=== PATIENT | female | born 1965 | race Caucasian/White ===

== ENCOUNTER 2016-09-11 06:28 | Day surgery (SDC) | payer OTHER ==
--- NOTE | ~2016-09-11 | EGD ---
EGD REPORT [facility] [address] [address] NAME: YUMIKO GUERRIER : [birth year] STATUS : REG [facility]#: [id number] AGE: 51 ADM/REG DATE : 09/11/16 MR#: [id number] REPORT SERV DATE: 09/11/16 DICTATED BY: ALENA MIKE DATE: 09/11/16 REPORT STATUS : Draft TRANSCRIBED BY: [facility] DATE: 09/11/16 Endoscopy Center Patient Name: Yumiko Guerrier Date of : 1965 Attending MD: ALENA MIKE, Procedure Date No Time: 09/11/2016 Procedure: Upper EUS Indications: Gastric deformity on endoscopy/Subepithelial tumor versus extrinsic compression Referring MD: Dione Sears Medicines: Monitored Anesthesia Care Complications: No immediate complications. Estimated blood loss: None. Procedure: Pre-Anesthesia Assessment: - ASA Grade Assessment: II - A patient with mild systemic disease. After obtaining informed consent, the endoscope was passed under direct vision. Throughout the procedure, the patient's blood pressure, pulse, and oxygen saturations were monitored continuously. The Endoscope was introduced through the mouth, and advanced to the second part of duodenum. The GIF [id number] was introduced through the mouth, and advanced to the second part of duodenum. Findings: Endoscopic Finding : The examined esophagus was endoscopically normal. Multiple diminutive sessile polyps with no bleeding and no stigmata of recent bleeding were found in the gastric body. A single small papule (nodule) with no bleeding and no stigmata of recent bleeding was found in the gastric antrum. The exam of the stomach was otherwise normal. The cardia and gastric fundus were normal on retroflexion. The examined duodenum was endoscopically normal. Endosonographic Finding : A lobulated intramural (subepithelial) lesion was found in the antrum of the stomach. The lesion was heterogenous. Sonographically, the lesion appeared to originate from the submucosa (Layer 3). The lesion measured 7 mm (in maximum thickness). The lesion also measured 3 mm in diameter. The outer endosonographic borders were well defined. There was no sign of significant endosonographic abnormality in the entire pancreas. The pancreas was well visualized, no pathologic lymphadenopathy, no masses, no calcifications, the pancreatic duct was well visualized from ampulla to tail, the pancreatic duct was regular in contour. EGD REPORT [address] [address] NAME: YUMIKO GUERRIER : [birth year] STATUS : REG [facility]#: [id number] AGE: 51 ADM/REG DATE : 09/11/16 MR#: [id number] REPORT SERV DATE: 09/11/16 DICTATED BY: ALENA MIKE DATE: 09/11/16 REPORT STATUS : Draft TRANSCRIBED BY: [employer] DATE: 09/11/16 There was no sign of significant endosonographic abnormality in the common bile duct. There was no sign of significant endosonographic abnormality in the examined duodenum. There was no sign of significant endosonographic abnormality in the esophagus. Impression: - Normal esophagus. - Multiple gastric polyps. - A single small papule (nodule) with no bleeding and no stigmata of recent bleeding was found in the stomach. - Normal examined duodenum. - An intramural (subepithelial) lesion was found in the antrum of the stomach. The lesion appeared to originate from within the submucosa (Layer 3). Tissue has not been obtained. However, the endosonographic appearance is highly suspicious for aberrant pancreas. - There was no sign of significant pathology in the entire pancreas. - There was no sign of significant pathology in the common bile duct. - There was no sign of significant pathology in the examined duodenum. - There was no sign of significant pathology in the esophagus. Recommendation: - Return to previous diet. - Continue present medications. - Return to GI clinic PRN. Lesion is c/w pancreatic rest and does not require further follow up. Procedure Code(s): --- Professional --- 05544, Esophagogastroduodenoscopy, flexible, transoral; with endoscopic ultrasound examination, including the esophagus, stomach, and either the duodenum or a surgically altered stomach where the jejunum is examined distal to the anastomosis Diagnosis Code(s): --- Professional --- K31.7, Polyp of stomach and duodenum K31.9, Disease of stomach and duodenum, unspecified K31.89, Other diseases of stomach and duodenum CPT copyright 2013 [employer]. All rights reserved. The codes documented in this report are preliminary and upon change booth attendant review may EGD REPORT [facility] [address] [place]. [address] NAME: YUMIKO GUERRIER : [birth year] STATUS : REG [facility] PAT#: [id number] AGE: 51 ADM/REG DATE : 09/11/16 MR#: [id number] REPORT SERV DATE: 09/11/16 DICTATED BY: ALENA MIKE DATE: 09/11/16 REPORT STATUS : Draft TRANSCRIBED BY: [employer] DATE: 09/11/16 be revised to meet current compliance requirements. ALENA MIKE, 09/11/2016 9:01 AM Number of Addenda: 0 Note Initiated On: 09/11/2016 7:55 AM Scope Withdrawal Time 0 hours 0 minutes 0 seconds [address] [place] [address]
[~2016-09-11 06:28] MED LIST: MIRALAX POWDER1 PKT PO; PRILO PO
== END 2016-09-11 23:59 | disposition home or self-care (01) ==
LOC: DMU 06:28
PROVIDERS: Internal Medicine Gastroenterology
PROC: 0DJ08ZZ Inspection of Upper Intestinal Tract, Via Natural or Artificial Opening Endoscopic (ICD-10-PCS; principal; 2016-09-11 08:00)
DX: K31.7 Polyp of stomach and duodenum (principal); K31.9 Disease of stomach and duodenum, unspecified; Z79.899 Other long term (current) drug therapy